=== PATIENT | male | born 1950 | race African-American/Black ===

== ENCOUNTER → 2016-09-07 | Outpatient (CLI) | payer MEDICARE, OTHER ==
[~2016-09-07] MED LIST: LISI10TA6 PO; NOR10T PO
[2016-09-07 10:39] LABS: DEFINITIVE VIEW TRANSMISSION; Hematocrit 38.9 % (41.0-53.0); Hemoglobin 12.3 g/dL (13.5-17.5); Mean Corpuscular Hemoglobin 29.8 pg (28.0-32.0); Mean Corpuscular Hgb Conc. 31.5 g/dL (32.0-36.0); Mean Corpuscular Volume 94.4 fL (80.0-100.0); Mean Platelet Volume 9.1 fL (7.4-10.4); Platelet Count (auto) 152 10^3/uL (140-450); Red Cell Distribution Width 17.2 % (11.6-16.0); White Blood Cell 2.3 10^3/uL (4.4-10.8)
[2016-09-07 10:44] LABS: Metamyelocytes % 0; Myelocytes % 0; Promyelocytes % 0; Reactive Lymphocytes 0
[2016-09-07 10:54] LABS: BUN/Creatinine Ratio 13.4; Bilirubin, Total 0.7 mg/dL (0.2-1.0); Calcium 8.5 mg/dL (8.5-10.1); Potassium 3.9 mmol/L (3.5-5.1); Total Protein 6.4 g/dL (6.4-8.2)
[2016-09-07 11:40] LABS: Platelet Clumps FEW; Platelet Estimate Adequate
[2016-09-07 11:42] LABS: Burr Cells FEW; Schistocytes FEW
== END | disposition home or self-care (01) ==
LOC: LAB 10:20
PROVIDERS: ATTEND Internal Medicine
DX: C16.9 Malignant neoplasm of stomach, unspecified (principal)
CPT/HCPCS: 36415; 80053; 83615; 85007; 85027

== ENCOUNTER → 2016-09-21 | Outpatient (CLI) | payer MEDICARE, OTHER ==
[2016-09-21 14:01] LABS: DEFINITIVE VIEW TRANSMISSION; Hemoglobin 13.1 g/dL (13.5-17.5); SUSPECT VIEW TRANSMISSION; White Blood Cell 3.3 10^3/uL (4.4-10.8)
[2016-09-21 14:07] LABS: Hematocrit 40.8 % (41.0-53.0); Mean Corpuscular Hemoglobin 30.4 pg (28.0-32.0); Mean Corpuscular Hgb Conc. 32.2 g/dL (32.0-36.0); Mean Corpuscular Volume 94.4 fL (80.0-100.0); Mean Platelet Volume 8.9 fL (7.4-10.4); Platelet Count (auto) 117 10^3/uL (140-450); Red Cell Distribution Width 16.6 % (11.6-16.0)
[2016-09-21 14:11] LABS: Metamyelocytes % 0; Myelocytes % 0; Promyelocytes % 0; Reactive Lymphocytes 0
[2016-09-21 14:25] LABS: Albumin 2.8 g/dL (3.4-5.0); BUN/Creatinine Ratio 7.6; Calcium 7.8 mg/dL (8.5-10.1); Potassium 3.2 mmol/L (3.5-5.1)
[2016-09-21 14:27] LABS: Bilirubin, Total 0.6 mg/dL (0.2-1.0); Total Protein 6.5 g/dL (6.4-8.2)
[2016-09-21 14:46] LABS: Platelet Estimate Decreased
[2016-09-21 14:47] LABS: Burr Cells FEW; RBC Morphology Normal
== END | disposition home or self-care (01) ==
LOC: LAB 13:47
PROVIDERS: ATTEND Internal Medicine
DX: C16.9 Malignant neoplasm of stomach, unspecified (principal)
CPT/HCPCS: 36415; 80053; 85007; 85027

== ENCOUNTER → 2016-10-05 | Outpatient (CLI) | payer MEDICARE, OTHER ==
[2016-10-05 10:36] LABS: DEFINITIVE VIEW TRANSMISSION; Hematocrit 35.5 % (41.0-53.0); Hemoglobin 11.2 g/dL (13.5-17.5); Mean Corpuscular Hgb Conc. 31.7 g/dL (32.0-36.0); Mean Corpuscular Volume 94.6 fL (80.0-100.0); Mean Platelet Volume 8.7 fL (7.4-10.4); Platelet Count (auto) 157 10^3/uL (140-450); Red Cell Distribution Width 17.6 % (11.6-16.0); White Blood Cell 2.7 10^3/uL (4.4-10.8)
[2016-10-05 10:38] LABS: Metamyelocytes % 0; Myelocytes % 0; Promyelocytes % 0; Reactive Lymphocytes 0
[2016-10-05 10:54] LABS: Albumin 2.7 g/dL (3.4-5.0); BUN/Creatinine Ratio 10.3; Bilirubin, Total 0.4 mg/dL (0.2-1.0); Calcium 8.1 mg/dL (8.5-10.1); Potassium 3.7 mmol/L (3.5-5.1); Total Protein 6.4 g/dL (6.4-8.2)
[2016-10-05 11:37] LABS: Burr Cells FEW; Platelet Estimate Adequate
== END | disposition home or self-care (01) ==
LOC: LAB 10:16
PROVIDERS: ATTEND Internal Medicine
DX: C16.9 Malignant neoplasm of stomach, unspecified (principal)
CPT/HCPCS: 36415; 80053; 83615; 85007; 85027

== ENCOUNTER → 2016-10-12 | Outpatient (CLI) | payer MEDICARE, OTHER ==
[2016-10-12 10:42] LABS: Albumin 2.7 g/dL (3.4-5.0); BUN/Creatinine Ratio 7.7; Basophils # (auto) 0 uL; Basophils % (auto) 0.3 % (0.0-2.0); Calcium 8.1 mg/dL (8.5-10.1); Eosinophils # (auto) 0 uL; Eosinophils % (auto) 1.4 % (0.0-7.0); Hematocrit 36.9 % (41.0-53.0); Hemoglobin 11.7 g/dL (13.5-17.5); Lymphocytes # (auto) 1.2 uL; Mean Corpuscular Hemoglobin 29.9 pg (28.0-32.0); Mean Corpuscular Hgb Conc. 31.7 g/dL (32.0-36.0); Mean Corpuscular Volume 94.2 fL (80.0-100.0); Mean Platelet Volume 8.8 fL (7.4-10.4); Monocytes # (auto) 0.3 uL; Monocytes % (auto) 11.7 % (0.0-12.0); Neutrophils # (auto) 1.3 uL; Neutrophils % (auto) 45.6 % (37.0-80.0); Platelet Count (auto) 157 10^3/uL (140-450); Potassium 3.9 mmol/L (3.5-5.1); Red Cell Distribution Width 17.8 % (11.6-16.0); White Blood Cell 2.9 10^3/uL (4.4-10.8)
[2016-10-12 10:45] LABS: Bilirubin, Total 0.4 mg/dL (0.2-1.0); Total Protein 6.2 g/dL (6.4-8.2)
== END | disposition home or self-care (01) ==
LOC: LAB 09:15
PROVIDERS: ATTEND Internal Medicine
DX: C16.9 Malignant neoplasm of stomach, unspecified (principal)
CPT/HCPCS: 36415; 80053; 83615; 85025

== ENCOUNTER → 2016-11-02 | Outpatient (CLI) | payer MEDICARE, OTHER ==
[2016-11-02 15:43] LABS: Basophils # (auto) 0 uL; Basophils % (auto) 0.4 % (0.0-2.0); DEFINITIVE VIEW TRANSMISSION; Eosinophils # (auto) 0 uL; Eosinophils % (auto) 1.1 % (0.0-7.0); Hematocrit 36.1 % (41.0-53.0); Hemoglobin 11.8 g/dL (13.5-17.5); Lymphocytes # (auto) 1.2 uL; Lymphocytes % (auto) 48.7 % (10.0-50.0); Mean Corpuscular Hemoglobin 30.7 pg (28.0-32.0); Mean Corpuscular Hgb Conc. 32.7 g/dL (32.0-36.0); Mean Corpuscular Volume 93.9 fL (80.0-100.0); Mean Platelet Volume 8.7 fL (7.4-10.4); Monocytes # (auto) 0.3 uL; Monocytes % (auto) 10.6 % (0.0-12.0); Neutrophils # (auto) 0.9 uL; Neutrophils % (auto) 39.2 % (37.0-80.0); Platelet Count (auto) 147 10^3/uL (140-450); Red Cell Distribution Width 18.7 % (11.6-16.0); White Blood Cell 2.4 10^3/uL (4.4-10.8)
[2016-11-03 07:52] LABS: Albumin 2.8 g/dL (3.4-5.0); BUN/Creatinine Ratio 13.6; Potassium 4.2 mmol/L (3.5-5.1)
[2016-11-03 07:56] LABS: Bilirubin, Total 0.4 mg/dL (0.2-1.0); Total Protein 6.5 g/dL (6.4-8.2)
== END | disposition home or self-care (01) ==
LOC: LAB 15:19
PROVIDERS: ATTEND Internal Medicine
DX: C16.9 Malignant neoplasm of stomach, unspecified (principal)
CPT/HCPCS: 36415; 80053; 83615; 85025

== ENCOUNTER → 2016-11-13 | Outpatient (CLI) | payer MEDICARE, OTHER ==
[2016-11-13 11:35] LABS: Basophils # (auto) 0 uL; Basophils % (auto) 0.3 % (0.0-2.0); Eosinophils # (auto) 0 uL; Eosinophils % (auto) 0.9 % (0.0-7.0); Hematocrit 35.7 % (41.0-53.0); Hemoglobin 11.8 g/dL (13.5-17.5); Lymphocytes # (auto) 1.2 uL; Lymphocytes % (auto) 46.8 % (10.0-50.0); Mean Corpuscular Hemoglobin 30.8 pg (28.0-32.0); Mean Corpuscular Volume 93.4 fL (80.0-100.0); Mean Platelet Volume 8.3 fL (7.4-10.4); Monocytes # (auto) 0.2 uL; Monocytes % (auto) 8.2 % (0.0-12.0); Neutrophils # (auto) 1.1 uL; Neutrophils % (auto) 43.8 % (37.0-80.0); Platelet Count (auto) 175 10^3/uL (140-450); Red Cell Distribution Width 17.7 % (11.6-16.0); White Blood Cell 2.6 10^3/uL (4.4-10.8)
[2016-11-13 11:58] LABS: Albumin 2.6 g/dL (3.4-5.0); BUN/Creatinine Ratio 10.7; Bilirubin, Total 0.5 mg/dL (0.2-1.0); Calcium 8.1 mg/dL (8.5-10.1); Potassium 3.7 mmol/L (3.5-5.1); Total Protein 6.4 g/dL (6.4-8.2)
== END | disposition home or self-care (01) ==
LOC: LAB 09:34
PROVIDERS: ATTEND Internal Medicine
DX: C16.9 Malignant neoplasm of stomach, unspecified (principal)
CPT/HCPCS: 36415; 80053; 83615; 85025

== ENCOUNTER → 2016-11-14 | Outpatient (CLI) | payer MEDICARE, OTHER ==
[~2016-11-14] MED LIST changes: +RIVA20TA PO
[2016-11-14 11:32] LABS: Prothrombin Time 12.3 sec (9.37-12.3)
[2016-11-14 11:52] LABS: INR 1.19 (0.9-1.15)
== END | disposition home or self-care (01) ==
LOC: LAB 10:22
PROVIDERS: ATTEND Internal Medicine Gastroenterology
DX: Z01.812 Encounter for preprocedural laboratory examination (principal)
CPT/HCPCS: 36415; 85610; 85730

== ENCOUNTER → 2016-11-16 | Outpatient (CLI) | payer MEDICARE, OTHER ==
[2016-11-16 11:44] LABS: Prothrombin Time 12.1 sec (9.37-12.3)
[2016-11-16 11:47] LABS: INR 1.17 (0.9-1.15)
[2016-11-16 11:49] LABS: Partial Thromboplastin Time 178.8 sec (22.64-33.71)
== END | disposition home or self-care (01) ==
LOC: LAB 10:34
PROVIDERS: ATTEND Internal Medicine
DX: C16.9 Malignant neoplasm of stomach, unspecified (principal)
CPT/HCPCS: 36415; 85610; 85730

== ENCOUNTER → 2016-11-20 | Day surgery (SDC) | payer MEDICARE, OTHER ==
[~2016-11-20] VITALS: Ht 185.4 cm; Wt 68.5 kg
[~2016-11-20] MED LIST changes: +LIDOCAINE VISCOUS 2% 15ML UD ONE; +MIDAZOLAM HCL 5 MG/ML-1ML VIAL ONE; +SODIUM CHLORIDE LOCK 10 ML ONE; +diphenhdrAMINE HCL 50 MG/1 ML VL ONE; +fentaNYL CITRATE 100 MCG/2 ML VL ONE
[2016-11-20 10:27] LABS: INR 1.13 (0.9-1.15); Partial Thromboplastin Time 23.4 sec (22.64-33.71); Prothrombin Time 11.6 sec (9.37-12.3)
[2016-11-20 12:10] VITALS: BP 126/73
== END | disposition home or self-care (01) ==
LOC: GI 08:33
PROVIDERS: ATTEND Internal Medicine Gastroenterology
DX: K63.89 Other specified diseases of intestine (principal); Z93.1 Gastrostomy status; J40 Bronchitis, not specified as acute or chronic; Z90.49 Acquired absence of other specified parts of digestive tract
CPT/HCPCS: 36415; 43239; 85610; 85730; J2250

== ENCOUNTER → 2016-11-30 | Outpatient (CLI) | payer MEDICARE, OTHER ==
[~2016-11-30] MED LIST changes: -LIDOCAINE VISCOUS 2% 15ML UD ONE; -MIDAZOLAM HCL 5 MG/ML-1ML VIAL ONE; -SODIUM CHLORIDE LOCK 10 ML ONE; -diphenhdrAMINE HCL 50 MG/1 ML VL ONE; -fentaNYL CITRATE 100 MCG/2 ML VL ONE
[2016-11-30 10:10] LABS: DEFINITIVE VIEW TRANSMISSION; Hematocrit 34.7 % (41.0-53.0); Hemoglobin 11.4 g/dL (13.5-17.5); Mean Corpuscular Hgb Conc. 32.8 g/dL (32.0-36.0); Mean Corpuscular Volume 94.4 fL (80.0-100.0); Mean Platelet Volume 8.3 fL (7.4-10.4); Platelet Count (auto) 128 10^3/uL (140-450)
[2016-11-30 10:39] LABS: White Blood Cell 1.8 10^3/uL (4.4-10.8)
[2016-11-30 10:42] LABS: Metamyelocytes % 0; Myelocytes % 0; Promyelocytes % 0; Reactive Lymphocytes 0
[2016-11-30 11:37] LABS: Platelet Estimate Decreased
[2016-11-30 11:38] LABS: Burr Cells MODERATE; Ovalocytes FEW
== END | disposition home or self-care (01) ==
LOC: LAB 09:56
PROVIDERS: ATTEND Internal Medicine
DX: C16.9 Malignant neoplasm of stomach, unspecified (principal)
CPT/HCPCS: 36415; 85007; 85027

== ENCOUNTER → 2016-12-05 | Outpatient (CLI) | payer MEDICARE, OTHER ==
[2016-12-05 10:20] LABS: Basophils # (auto) 0 uL; Basophils % (auto) 0.4 % (0.0-2.0); DEFINITIVE VIEW TRANSMISSION; Eosinophils # (auto) 0 uL; Eosinophils % (auto) 1.3 % (0.0-7.0); Hematocrit 37.8 % (41.0-53.0); Hemoglobin 12.3 g/dL (13.5-17.5); Lymphocytes # (auto) 1.2 uL; Lymphocytes % (auto) 51.1 % (10.0-50.0); Mean Corpuscular Hgb Conc. 32.4 g/dL (32.0-36.0); Mean Corpuscular Volume 95.7 fL (80.0-100.0); Mean Platelet Volume 8.6 fL (7.4-10.4); Monocytes # (auto) 0.3 uL; Neutrophils # (auto) 0.8 uL; Neutrophils % (auto) 34.2 % (37.0-80.0); Platelet Count (auto) 126 10^3/uL (140-450); Red Cell Distribution Width 17.6 % (11.6-16.0); White Blood Cell 2.3 10^3/uL (4.4-10.8)
== END | disposition home or self-care (01) ==
LOC: LAB 09:35
PROVIDERS: ATTEND Internal Medicine
DX: C16.9 Malignant neoplasm of stomach, unspecified (principal)
CPT/HCPCS: 36415; 85025

== ENCOUNTER → 2016-12-28 | Outpatient (CLI) | payer MEDICARE, OTHER ==
[2016-12-28 10:29] LABS: Basophils # (auto) 0 uL; Basophils % (auto) 0.4 % (0.0-2.0); Eosinophils # (auto) 0 uL; Eosinophils % (auto) 0.5 % (0.0-7.0); Hematocrit 37.6 % (41.0-53.0); Hemoglobin 12.4 g/dL (13.5-17.5); Lymphocytes # (auto) 1.5 uL; Lymphocytes % (auto) 52.7 % (10.0-50.0); Mean Corpuscular Hemoglobin 30.9 pg (28.0-32.0); Mean Corpuscular Hgb Conc. 32.9 g/dL (32.0-36.0); Mean Platelet Volume 8.5 fL (7.4-10.4); Monocytes # (auto) 0.3 uL; Monocytes % (auto) 10.5 % (0.0-12.0); Neutrophils % (auto) 35.9 % (37.0-80.0); Platelet Count (auto) 156 10^3/uL (140-450); Red Cell Distribution Width 16.7 % (11.6-16.0); White Blood Cell 2.9 10^3/uL (4.4-10.8)
[2016-12-28 11:18] LABS: Albumin 2.3 g/dL (3.4-5.0); BUN/Creatinine Ratio 18.4; Potassium 3.5 mmol/L (3.5-5.1)
[2016-12-28 11:21] LABS: Bilirubin, Total 1.4 mg/dL (0.2-1.0); Total Protein 5.9 g/dL (6.4-8.2)
== END | disposition home or self-care (01) ==
LOC: LAB 10:02
PROVIDERS: ATTEND Internal Medicine
DX: C16.9 Malignant neoplasm of stomach, unspecified (principal)
CPT/HCPCS: 36415; 80053; 83615; 85025